=== PATIENT | male | born 1945 | race Caucasian/White ===

== ENCOUNTER → 2022-03-16 14:21 | Outpatient (CLI) | payer MEDICARE, OTHER, SELFPAY ==
[2022-03-16 15:39] LABS: Hematocrit 44.6 % (41-53); Hemoglobin 15.4 g/dL (13.5-17.5); Mean Corpuscular HGB Conc 34.5 % (30-36); Mean Corpuscular Hemoglobin 32.1 PG (26-34); Mean Corpuscular Volume 93.1 fL (80-100); Platelet Count 207 X10^3/uL (150-400); Red Blood Cell Count 4.79 X10^6/uL (4.5-5.9); Red Cell Distribution Width 12.9 % (11.6-14.8); White Blood Cell Count 7.2 X10^3/uL (4.5-11.0)
[2022-03-16 16:39] LABS: Alanine Aminotransferase 28 IU/L (<50); Albumin 4.6 g/dL (3.5-5.0); Albumin Globulin Ratio 1.4 (1.0-2.8); Alkaline Phosphatase 49 U/L (38-126); Aspartate Aminotransferase 31 IU/L (17-59); BUN Creatinine Ratio 20.4 (6-22); Bilirubin Total 0.4 mg/dL (0.2-1.3); Blood Urea Nitrogen 21 mg/dL (9-20); Calcium 9.7 mg/dL (8.4-10.2); Carbon Dioxide 23 mmol/L (22-32); Chloride 107 mmol/L (98-107); Cholesterol 225 mg/dL (140-199); Estimated Glomerular Filt Rate > 60 mL/min (>60); Globulin 3.3 g/dL (1.7-4.1); Glucose 96 mg/dL (80-110); HDL Cholesterol 50 mg/dL (40-60); HEMOLYSIS < 15 (0-50); LDL Cholesterol Calculated 125 mg/dL (<100); Potassium 4.5 mmol/L (3.4-5.1); Sodium 138 mmol/L (137-145); Total Protein 7.9 g/dL (6.3-8.2); Triglycerides 252 mg/dL (35-150)
[2022-03-16 17:10] LABS: Prostate Specific Antigen 0.642 ng/mL (0.10-4.00)
== END ==
PROVIDERS: PCP Internal Medicine; Referring Provider Internal Medicine; Visit Provider Internal Medicine
DX: I10 Essential (primary) hypertension (principal); N40.1 Benign prostatic hyperplasia with lower urinary tract symptoms; E78.2 Mixed hyperlipidemia; N13.8 Other obstructive and reflux uropathy
CPT/HCPCS: 36415; 80053; 80061; 84153; 84443; 85027

== ENCOUNTER → 2022-08-23 11:54 | Outpatient (CLI) | payer MEDICARE, OTHER, SELFPAY ==
[2022-08-23 12:57] LABS: Cholesterol 174 mg/dL (140-199); HDL Cholesterol 68 mg/dL (40-60); LDL Cholesterol Calculated 76 mg/dL (<100); Triglycerides 149 mg/dL (35-150)
== END ==
PROVIDERS: PCP Internal Medicine; Referring Provider Internal Medicine; Visit Provider Internal Medicine
DX: E78.2 Mixed hyperlipidemia (principal)
CPT/HCPCS: 36415; 80061

== ENCOUNTER → 2023-02-18 09:18 | Outpatient (CLI) | payer MEDICARE, OTHER, SELFPAY ==
[2023-02-19 13:26] LABS: Fecal Immunochemical Test Negative (Negative)
== END ==
PROVIDERS: PCP Internal Medicine; Referring Provider Internal Medicine; Visit Provider Internal Medicine
DX: Z12.11 Encounter for screening for malignant neoplasm of colon (principal)
CPT/HCPCS: 82274

== ENCOUNTER 2023-03-19 15:57 | Emergency (ER) | payer MEDICARE, OTHER, SELFPAY ==
[2023-03-19] VITALS (41 sets, daily range): BP systolic 129–241; BP diastolic 74–124; PULSE 60–84; RESP 13–24; TEMP 36.6; O2SAT 94–97; BMI 25.8
--- NOTE | 2023-03-19 | DI.RAD.S_ITS ---
PROCEDURE: XR SHOULDER RT MIN 2V INDICATIONS: POST REDUCTION TECHNIQUE: 3 views of the shoulder were acquired. COMPARISON: [facility], CR, XR SHOULDER RT MIN 2V, 03/19/2023, 16:09. FINDINGS: Bones: There is interval reduction of earlier noted anterior dislocation at glenohumeral joint. There is suggestion of a Hill-Sachs deformity involving posterior lateral humeral head. No gross Bankart fracture. Moderate acromioclavicular joint and glenohumeral joint osteoarthritic changes are seen. No suspicious bony lesions. Visualized ribs appear intact. Soft tissues: No suspicious soft tissue calcifications. IMPRESSION: Interval reduction of earlier noted glenohumeral joint dislocation with suggestion of a Hill-Sachs deformity involving humeral head. Shoulder alignment is anatomic. No other fracture or dislocation. Moderate shoulder joint osteoarthritis. Dictated by: Bernard Minor M.D. on 03/19/2023 at 18:30 Approved by: Bernard Minor M.D. on 03/19/2023 at 18:31
--- NOTE | 2023-03-19 16:08 | DI.RAD.S_ITS ---
PROCEDURE: XR SHOULDER RT MIN 2V INDICATIONS: fall with deformity TECHNIQUE: 2 views of the shoulder were acquired. COMPARISON: None. FINDINGS: Bones: Anterior dislocation of the right humerus. No fractures. No suspicious bony lesions. Visualized ribs appear intact. Soft tissues: No suspicious soft tissue calcifications. IMPRESSION: Right shoulder anterior dislocation. Dictated by: Winnie Haines MD, PhD on 03/19/2023 at 16:38 Approved by: Winnie Haines MD, PhD on 03/19/2023 at 16:38
[2023-03-19] MEDS: MORPHINE 2 MG/ML INJ IV (16:51)
[2023-03-19] MEDS: SODIUM CHLORIDE 0.9% 1,000 ML 1000 ML IV (17:35)
[2023-03-19] MEDS: propofoL 200 MG/20 ML VIAL 50 MG IV (17:50)
--- NOTE | 2023-03-19 17:51 | ED.UPPEXIN ---
HPI - Extremity Injury (Upper) General Chief Complaint: Extremity Injury, Upper Stated Complaint: fall Time Seen by Provider: 03/19/23 16:37 Source: patient and EMS Mode of arrival: EMS History of Present Illness HPI narrative: Patient is a 77-year-old male history of aortic stenosis, hypertension, hyperlipidemia who presents after a ground level fall with right shoulder pain. He reports that he and his are [place] when he tripped and fell. He did not hit her head or lose consciousness. He has no other injury. He is obvious right shoulder deformity. Not on any antiplatelet or anticoagulation medication. Related Data Home Medications Medication Instructions Recorded Confirmed aspirin 81 mg tablet,delayed 81 mg PO DAILY 03/16/22 02/13/23 release cholecalciferol (vitamin D3) 125 125 mcg PO DAILY 03/16/22 02/13/23 mcg (5,000 unit) capsule ferrous sulfate 325 mg (65 mg 325 mg PO Q OTHER DAY 03/16/22 02/13/23 iron) tablet (Feosol) glucosamine HCl 3,000 mg PO DAILY 03/16/22 02/13/23 multivitamin 1 tab PO DAILY 03/16/22 02/13/23 omega-3 fatty acids 1,000 mg 1,000 mg PO BID 03/16/22 02/13/23 capsule Previous Rx's Medication Instructions Recorded finasteride 5 mg tablet 5 mg PO DAILY #90 tabs 03/16/22 lisinopril 10 mg tablet 10 mg PO DAILY #90 tabs 03/16/22 tamsulosin 0.4 mg capsule 0.8 mg PO DAILY #180 caps 03/16/22 tadalafil (pulm. hypertension) 20 20 mg PO DAILY PRN sexual activity 08/23/22 mg tablet (pulmonary hypertension) #20 tabs rosuvastatin 10 mg tablet 10 mg PO DAILY #90 tabs 03/14/23 hydrocodone 5 mg-acetaminophen 325 1 tab PO Q6H PRN pain #10 tabs 03/19/23 mg tablet Allergies Allergy/AdvReac Type Severity Reaction Status Date / Time No Known Drug Allergies Allergy Verified 03/19/23 16:08 Review of Systems Review of Systems ROS Unobtainable: All systems reviewed & are unremarkable except as noted in HPI and below Patient History Medical History Aortic stenosis BPH w urinary obs/LUTS Cataracts, bilateral Chicken pox Erectile dysfunction Essential hypertension History of colonic polyps Measles Mixed hyperlipidemia Overweight Wears glasses Surgical History Anesthesia History of tonsillectomy (~1948) Family History Mother History of heart disease Grandmother History of heart disease Hypertension Grandfather Stroke Grandmother Diabetes mellitus Social History Smoking Status: Never smoker Smoking Status: Never smoker alcohol intake frequency: 0-2 drinks per day Substance Use Type: does not use Exam Initial Vital Signs Initial Vital Signs: Vital Signs Temperature 97.9 F 03/19/23 16:05 Pulse Rate 60 03/19/23 16:05 Respiratory Rate 20 03/19/23 16:05 Blood Pressure 129/100 H 03/19/23 16:05 Pulse Oximetry 96 03/19/23 16:05 Oxygen Delivery Method Room Air 03/19/23 16:05 GENERAL: pleasant 77-year-old male HEENT: Head atraumatic,EOMI, pupils reactive, face symmetric, moist mucous membranes CARDIOVASCULAR: Regular rate and rhythm without murmurs, rubs or gallops. RESPIRATORY: Breath sounds equal bilaterally, no wheezes rales or rhonchi. ABDOMEN: Soft, nontender. Normoactive bowel sounds all 4 quadrants. No guarding or rebound. EXTREMITIES: Normal range of motion, no clubbing or edema. Neurovascularly intact Right shoulder anterior dislocation no clavicle step-off sensation over deltoid intact distal radial pulse intact other deformity NEUROLOGICAL: Alert and oriented x4. SKIN: Warm, dry, no laceration, no petechiae, no rashes or lesions. Procedures Orthopedic Joint Reduction Joint #1: Side: right Joint Reduction Location: shoulder Analgesia: procedural sedation Shoulder Technique Used (if applicable): traction/counter-traction Post-reduction neuro exam: intact and no change Post-reduction vascular: intact Post Reduction X-Ray Obtained: Yes Post Reduction X-Ray Results: reduced Splint Applied: Yes Procedural Sedation Consent signed: Yes Time out performed: Yes Indication: fracture/dislocation reduction ASA Class: II Mallampati Airway Classification: Class II Preparation: monitor tech applied, pulse oximeter, capnometry used, supplemental O2 applied and suction/airway equipment at bedside IV Propofol dose (mg): 50 Intraservice time/total sedation time (min): 11 ED Sedation Level: Moderate (Concious) Patient Tolerated Procedure: Well and No complications Complications: none Course Orders Ordered: ED Orders 03/19/23 16:08 XR shoulder RT min 2V Stat Discontinued Medications Hydrocodone Bitart/Acetaminophen (Hydrocodone/Acet 5/325 Prepack) 1 bottle MISC SEEINSTR ONE Stop: 03/19/23 18:47 Last Admin: 03/19/23 18:57 Dose: 1 bottle Documented By: FIONA Sodium Chloride (Normal Saline 0.9%) 1,000 mls @ 1,000 mls/hr IV BOLUS ONE Stop: 03/19/23 18:15 Last Infusion: 03/19/23 18:58 Dose: 0 mls/hr Documented By: Admin: 03/19/23 17:35 Dose: 1,000 mls/hr Documented By: FIONA Morphine Sulfate (Morphine 2 Mg/Ml Inj) 2 mg IV NOW ONE Stop: 03/19/23 16:38 Last Admin: 03/19/23 16:51 Dose: 2 mg Documented By: NADIRA Propofol (Propofol 200 Mg/20 Ml Vial) 50 mg IV NOW ONE Stop: 03/19/23 17:17 Last Admin: 03/19/23 17:50 Dose: 50 mg Documented By: FIONA Vital Signs Vital signs: Vital Signs - 8 hr 03/19/23 16:05 03/19/23 16:12 03/19/23 16:13 Temperature 97.9 F Pulse Rate 60 65 Respiratory Rate 20 Blood Pressure 129/100 H 212/97 H Pulse Oximetry 96 97 Oxygen Delivery Method Room Air 03/19/23 16:13 03/19/23 16:30 03/19/23 16:43 Temperature Pulse Rate 63 60 Respiratory Rate Blood Pressure 211/100 H Pulse Oximetry 96 95 Oxygen Delivery Method 03/19/23 16:43 03/19/23 16:53 03/19/23 16:53 Temperature Pulse Rate 62 61 Respiratory Rate Blood Pressure 190/92 H Pulse Oximetry 94 94 Oxygen Delivery Method 03/19/23 17:00 03/19/23 17:58 03/19/23 18:02 Temperature Pulse Rate 60 68 68 Respiratory Rate 18 18 Blood Pressure 184/92 H 176/87 H Pulse Oximetry 94 97 97 Oxygen Delivery Method 03/19/23 18:07 03/19/23 18:12 03/19/23 18:17 Temperature Pulse Rate 66 71 64 Respiratory Rate 18 18 18 Blood Pressure 185/91 H 180/74 H 174/84 H Pulse Oximetry 96 97 97 Oxygen Delivery Method 03/19/23 17:05 03/19/23 17:10 03/19/23 17:15 Temperature Pulse Rate 62 62 61 Respiratory Rate Blood Pressure Pulse Oximetry 95 95 95 Oxygen Delivery Method 03/19/23 17:20 03/19/23 17:25 03/19/23 17:30 Temperature Pulse Rate 65 65 65 Respiratory Rate Blood Pressure Pulse Oximetry 95 96 96 Oxygen Delivery Method 03/19/23 17:35 03/19/23 17:40 03/19/23 17:44 Temperature Pulse Rate 70 71 Respiratory Rate Blood Pressure 213/95 H Pulse Oximetry 96 95 Oxygen Delivery Method 03/19/23 17:44 03/19/23 17:45 03/19/23 17:46 Temperature Pulse Rate 72 71 Respiratory Rate 15 17 Blood Pressure 205/123 H Pulse Oximetry 96 97 Oxygen Delivery Method 03/19/23 17:46 03/19/23 17:50 03/19/23 17:51 Temperature Pulse Rate 70 73 73 Respiratory Rate 23 13 14 Blood Pressure Pulse Oximetry 97 95 97 Oxygen Delivery Method 03/19/23 17:51 03/19/23 17:55 03/19/23 17:59 Temperature Pulse Rate 84 Respiratory Rate 22 Blood Pressure 241/101 H 184/92 H Pulse Oximetry 96 Oxygen Delivery Method 03/19/23 17:59 03/19/23 18:00 03/19/23 18:00 Temperature Pulse Rate 70 70 Respiratory Rate 18 16 Blood Pressure 176/87 H Pulse Oximetry 96 95 Oxygen Delivery Method 03/19/23 18:05 03/19/23 18:05 03/19/23 18:10 Temperature Pulse Rate 68 Respiratory Rate 24 Blood Pressure 185/91 H 162/78 H Pulse Oximetry 94 Oxygen Delivery Method 03/19/23 18:10 03/19/23 18:15 03/19/23 18:15 Temperature Pulse Rate 64 61 Respiratory Rate 13 15 Blood Pressure 174/84 H Pulse Oximetry 96 95 Oxygen Delivery Method 03/19/23 18:20 03/19/23 18:20 03/19/23 18:25 Temperature Pulse Rate 62 Respiratory Rate 13 Blood Pressure 174/84 H 175/124 H Pulse Oximetry 96 Oxygen Delivery Method 03/19/23 18:25 03/19/23 18:33 03/19/23 18:30 Temperature Pulse Rate 62 60 62 Respiratory Rate 22 16 22 Blood Pressure Pulse Oximetry 97 96 Oxygen Delivery Method 03/19/23 18:31 03/19/23 18:31 03/19/23 18:35 Temperature Pulse Rate 65 Respiratory Rate 22 Blood Pressure 182/118 H 178/78 H Pulse Oximetry 96 Oxygen Delivery Method 03/19/23 18:35 03/19/23 18:40 03/19/23 18:41 Temperature Pulse Rate 64 65 67 Respiratory Rate 21 22 18 Blood Pressure Pulse Oximetry 96 94 95 Oxygen Delivery Method 03/19/23 18:41 03/19/23 18:45 03/19/23 18:46 Temperature Pulse Rate 66 Respiratory Rate 20 Blood Pressure 203/85 H 170/77 H Pulse Oximetry 97 Oxygen Delivery Method MDM - Extremity Injury (Upper) Imaging Data Extremity x-ray #1: Radiologist's Impression: PROCEDURE:? XR SHOULDER RT MIN 2V ? INDICATIONS:? fall with deformity ? TECHNIQUE:? 2 views of the shoulder were acquired.? ? COMPARISON:? None. ? FINDINGS:? ? Bones:? Anterior dislocation of the right humerus.? No fractures.? No suspicious bony lesions.? Visualized ribs appear intact.? ? Soft tissues:? No suspicious soft tissue calcifications.? ? IMPRESSION:? Right shoulder anterior dislocation. ? ? Dictated by: Winnie Haines MD, PhD on 03/19/2023 at 16:38? Extremity x-ray #2: Radiologist's Impression: PROCEDURE:? XR SHOULDER RT MIN 2V ? INDICATIONS:? POST REDUCTION ? TECHNIQUE:? 3 views of the shoulder were acquired.? ? COMPARISON:? [facility], , XR SHOULDER RT MIN 2V, 03/19/2023, 16:09. ? FINDINGS:? ? Bones:? There is interval reduction of earlier noted anterior dislocation at glenohumeral joint.? There is suggestion of a Hill-Sachs deformity involving posterior lateral humeral head.? No gross Bankart fracture.? Moderate acromioclavicular joint and glenohumeral joint osteoarthritic changes are seen.? No suspicious bony lesions.? Visualized ribs appear intact.? ? Soft tissues:? No suspicious soft tissue calcifications.? ? IMPRESSION:? Interval reduction of earlier noted glenohumeral joint dislocation with suggestion of a Hill-Sachs deformity involving humeral head.? Shoulder alignment is anatomic.? No other fracture or dislocation.? Moderate shoulder joint osteoarthritis. ? ? Dictated by: Bernard Minor M.D. on 03/19/2023 at 18:30 ? ? Approved by: Bernard Minor M.D. on 03/19/2023 at 18:31 ? MDM Narrative Medical decision making narrative: Patient is 77-year-old male had a mechanical trip and fall with right anterior shoulder dislocation. Easily reduced. Patient given pain medication as needed and instructed to follow-up. No other injury no other need for workup or evaluation. Discharge Plan Departure Patient Disposition: Home Clinical Impression: Anterior dislocation of right shoulder Instructions: DI for Shoulder Dislocation Activity Restrictions/Additional Instructions: *You have been diagnosed with right shoulder dislocation *What to do: I am sorry you dislocated her shoulder, expect it to be sore for the next couple of days. Wear sling as needed but make sure that you move your shoulder regularly. Increase activity as tolerated *Continue to take medications as directed [place] 1 tablet every 6 hours if needed for severe pain--> sent to [facility] Motrin 600 mg every 6 hours if needed for [id number] pain *Follow up with your primary care provider in 2-3 days or call [phone] *Return to ER if you should have increasing pain numbness tingling weakness or any new, worsening or concerning symptoms CONTROLLED SUBSTANCE DISCHARGE (Narcotoic/benzodiazepine/Flexeril/Phenergan) 1. You have been prescribed narcotic medications, it does have acetaminophen/Tylenol/paracetamol in it, DO NOT TAKE MORE THAN 4,00mg in 24 hours of Tylenol. TRAMADOL DOES NOT CONTAIN TYLENOL 2. Please understand that we cannot provide further refills of narcotics, benzodiazepines or controlled substances through the ED and her pain management will need to be through your provider. 3. While on these medications you cannot drive or operate heavy machinery. 4. You cannot sign legal documents or perform any duties such as this. 5. As long as you're taking opiate pain medications he should also be taking a stool softener such as Colace, Dulcolax, MiraLAX or prune juice, to help avoid constipation. Prescriptions: New hydrocodone-acetaminophen 5-325 mg tablet 1 tab PO Q6H PRN (Reason: pain) Qty: 10 0RF No Action rosuvastatin 10 mg tablet 10 mg PO DAILY Qty: 90 3RF tadalafil (pulm. hypertension) 20 mg tablet 20 mg PO DAILY PRN (Reason: sexual activity) Qty: 20 5RF Rx Instructions: administer approximately 30min before sexual activity; do not use more than 1 dose per 24hrs aspirin 81 mg tablet,delayed release (DR/EC) 81 mg PO DAILY omega-3 fatty acids 1,000 mg capsule 1,000 mg PO BID glucosamine HCl 3,000 mg PO DAILY multivitamin Tablet 1 tab PO DAILY cholecalciferol (vitamin D3) 125 mcg (5,000 unit) capsule 125 mcg PO DAILY ferrous sulfate [Feosol] 325 mg (65 mg iron) tablet 325 mg PO Q OTHER DAY tamsulosin 0.4 mg capsule 0.8 mg PO DAILY Qty: 180 3RF lisinopril 10 mg tablet 10 mg PO DAILY Qty: 90 3RF finasteride 5 mg tablet 5 mg PO DAILY Qty: 90 3RF Referrals: Yash Zafar MD [Primary Care Provider] - Stand Alone Forms: Patient Portal/API
--- NOTE | 2023-03-19 18:28 | PC.NURSE ---
Sedation notes for post-procedure were charted in intra procedure, FYI. Pt tolerated procedure well. Start time and end time were 60 seconds apart. Pt AOx4 immediately after procedure. Physician administered 50mg propofol.
[2023-03-19] MEDS: HYDROCODONE/ACET 5/325 PREPACK 1 BOTTLE MISC (18:57)
== END 2023-03-19 18:59 | disposition home or self-care (01) ==
PROVIDERS: Emergency Provider Emergency Medicine; PCP Internal Medicine
DX: S43.004A Unspecified dislocation of right shoulder joint, initial encounter (principal); W18.30XA Fall on same level, unspecified, initial encounter
CPT/HCPCS: 23650; 36415; 73030; 96361; 96374; 99152; 99284; J2270; J2704

== ENCOUNTER → 2023-04-02 12:22 | Outpatient (CLI) | payer MEDICARE, OTHER, SELFPAY ==
--- NOTE | 2023-04-02 12:24 | DI.ECHO.S_ITS ---
Version: 1 Study ID: [id number] [place] [id number] Name: RADHA GONZALEZ Study Date: 04/02/2023, 12: 39 PM : 1945 BP: 147 / 89 mmHg Gender: Male Height: 70 in Age: 77 Years Weight: 184 lb BSA: 2.01 mA? Ordering: AGATHA DEVRIES Referring: AGATHA DEVRIES Clinician: Neisha Field Reason For Study: AORTIC STENOSIS History: Summary Statements Sinus rhythm with heart rate 54-71 bpm during the exam. Normal LV size and mildly increased wall thickness; normal wall motion and LV systolic function. EF is 55-60%. Stage I diastolic dysfunction. Normal chamber sizes. Mild MAC. Aortic valve demonstrates moderately thickened and calcified leaflets with moderately reduced leaflet excursion. There is mild-moderate aortic stenosis. Mean gradient is 16 mm Hg, peak velocity is 2.6 m/sec and calculated valve area is 1.3 cm squared. Can not exclude a bicuspid valve with pseudoraphe connectingright and left coronary leaflets. No prior study available for comparison. Procedure: A two-dimensional transthoracic echocardiogram with color flow and Doppler was performed. The study quality was technically adequate. There is no prior echocardiogram noted for this patient. The patient was in sinus rhythm with heart rates between 54-71 bpm during the exam. Left Ventricle: The ejection fraction is estimated to be 55-60%. The left ventricle is normal in size. There is mild concentric left ventricular hypertrophy. Right Ventricle: The right ventricle is normal in size and function. Atria: There is no Doppler evidence for an interatrial shunt. The left atrial size is normal. Right atrial size is normal. Mitral Valve: There is trace mitral regurgitation. There is mild mitral annular calcification. The mitral valve leaflets appear borderline thickened, but open well. Aortic Valve: There is mild aortic regurgitation. There is mild to moderate aortic stenosis. The peak aortic velocity is 2.6 m/sec. The aortic valve mean gradient is 16 mmHg. The calculated aortic valve area is 1.3 cm2. The aortic valve is moderately calcified. There is mild to moderately reduced leaflet mobility. Tricuspid Valve: There is trace tricuspid regurgitation. The tricuspid valve is normal in structure and function. Pulmonic Valve: There is no pulmonic valvular regurgitation. The pulmonic valve leaflets are thin and pliable; valve motion is normal. Great Vessels: The dimensions of the ascending aorta are normal. The aortic root is normal size. The IVC is of normal diameter and collapses greater than 50% with a sniff. This suggests a low right atrial pressure of 3 mm Hg. Pericardium/ Pleura: There is no pericardial effusion. There is no pleural effusion. 2D and M-Mode Measurements and Calculations LVIDd: 4.5 cm AoV Openin.81 cm LVIDs: 2.8 cm LVOT diam: 2.12 cm IVSd: 1.09 cm Ao root diam: 3.4 cm LVPWd: 1.07 cm asc Aorta Diam: 3.5 cm LV foote. diameter/BSA (cm/m^2): 2.21 Ao Arch Diam (Prox Trans): 2.30 cm LV sys. 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 IVC diam: 1.79 cm LA A2 area: 16.4 fire truck driver? RA area: 16.3 fire truck driver? LA length (vol): 4.7 cm RA long axis: 4.9 cm LA vol: 41.7 ml RA vol: 46.2 ml LA vol index: 20.7 ml/mA? RA : 22.9 ml/mA? Doppler Measurements and Calculations Ao V2 max: 261.7 cm/sec LVOT Max Fer: 94.0 cm/sec Ao V2 mean: 180.5 cm/sec LV V1 max P.5 mmHg Ao V2 VTI: 59.3 cm LV V1 VTI: 22.0 cm Ao max P.3 mmHg SV(LVOT): 77.5 ml Ao mean P.2 mmHg TALHA(I,D): 1.31 fire truck driver? TALHA(V,D): 1.27 fire truck driver? TALHA indexed to BSA (cm^2/m^2): 0.65 sev ratio: 0.37 MV E max fer: 62.9 cm/sec MV dec time: 0.32 sec MV A max fer: 102.5 cm/sec MV E/A: 0.61 Med Peak E' Fer: 3.7 cm/sec Lat Peak E' Fer: 6.7 cm/sec E/e' average: 13.2 TR max fer: 191.8 cm/sec PA mean P.55 mmHg TR max P.7 mmHg PA V2 max: 88.9 cm/sec Kira Paul M.D. Electronically signed by: Kira Paul M.D. 04/03/2023, 2: 35 AM
== END ==
PROVIDERS: PCP Internal Medicine; Referring Provider Internal Medicine; Visit Provider Internal Medicine
DX: I35.2 Nonrheumatic aortic (valve) stenosis with insufficiency (principal); I34.81 Nonrheumatic mitral (valve) annulus calcification
CPT/HCPCS: 93306

== ENCOUNTER → 2023-08-19 08:43 | Outpatient (CLI) | payer MEDICARE, OTHER, SELFPAY ==
[2023-08-19 09:58] LABS: Aspartate Aminotransferase 27 IU/L (17-59); BUN Creatinine Ratio 18.7 (6-22); Blood Urea Nitrogen 17 mg/dL (9-20); Calcium 10.1 mg/dL (8.4-10.2); Carbon Dioxide 24 mmol/L (22-32); Chloride 105 mmol/L (98-107); Cholesterol 156 mg/dL (140-199); Estimated Glomerular Filt Rate > 60 mL/min (>60); Glucose 102 mg/dL (80-110); HDL Cholesterol 60 mg/dL (40-60); HEMOLYSIS < 15 (0-50); LDL Cholesterol Calculated 68 mg/dL (<100); Potassium 4.4 mmol/L (3.4-5.1); Sodium 137 mmol/L (137-145); Triglycerides 140 mg/dL (35-150)
[2023-08-19 10:26] LABS: Prostate Specific Antigen 0.467 ng/mL (0.10-4.00)
== END ==
PROVIDERS: PCP Internal Medicine; Referring Provider Internal Medicine; Visit Provider Internal Medicine
DX: E78.2 Mixed hyperlipidemia (principal); N40.1 Benign prostatic hyperplasia with lower urinary tract symptoms; N13.8 Other obstructive and reflux uropathy; I10 Essential (primary) hypertension
CPT/HCPCS: 36415; 80048; 80061; 84153; 84450

== ENCOUNTER → 2024-02-25 10:30 | Outpatient (CLI) | payer MEDICARE, OTHER, SELFPAY ==
[2024-02-26 10:10] LABS: Fecal Immunochemical Test Negative (Negative)
== END ==
PROVIDERS: PCP Internal Medicine; Referring Provider Internal Medicine; Visit Provider Internal Medicine
DX: Z86.010 Personal history of colon polyps (principal)
CPT/HCPCS: 82274

== ENCOUNTER → 2024-09-15 09:04 | Outpatient (CLI) | payer MEDICARE, OTHER, SELFPAY ==
[2024-09-15 11:23] LABS: Aspartate Aminotransferase 33 IU/L (17-59); BUN Creatinine Ratio 17.9 (6-22); Blood Urea Nitrogen 21 mg/dL (9-20); Carbon Dioxide 22 mmol/L (22-32); Chloride 106 mmol/L (98-107); Cholesterol 179 mg/dL (140-199); Estimated Glomerular Filt Rate > 60 mL/min (>60); Glucose 103 mg/dL (80-110); HDL Cholesterol 72 mg/dL (40-60); HEMOLYSIS < 15 (0-50); LDL Cholesterol Calculated 84 mg/dL (<100); Potassium 4.7 mmol/L (3.4-5.1); Sodium 137 mmol/L (137-145); Triglycerides 114 mg/dL (35-150)
[2024-09-15 11:58] LABS: Prostate Specific Antigen 0.356 ng/mL (0.10-4.00)
== END ==
PROVIDERS: PCP Internal Medicine; Referring Provider Internal Medicine; Visit Provider Internal Medicine
DX: I10 Essential (primary) hypertension (principal); N40.1 Benign prostatic hyperplasia with lower urinary tract symptoms; E78.2 Mixed hyperlipidemia; N13.8 Other obstructive and reflux uropathy
CPT/HCPCS: 36415; 80048; 80061; 84153; 84450

== ENCOUNTER → 2025-09-20 09:46 | Outpatient (CLI) | payer MEDICARE, SELFPAY ==
[2025-09-20 11:28] LABS: Hematocrit 43.3 % (41-53); Hemoglobin 14.9 g/dL (13.5-17.5); Mean Corpuscular HGB Conc 34.5 % (30-36); Mean Corpuscular Hemoglobin 32.5 PG (26-34); Mean Corpuscular Volume 94.4 fL (80-100); Platelet Count 207 X10^3/uL (150-400)
[2025-09-20 11:53] LABS: Blood Urea Nitrogen 16 mg/dL (9-20); Calcium 10.0 mg/dL (8.4-10.2); Carbon Dioxide 22 mmol/L (22-32); Chloride 106 mmol/L (98-107); Cholesterol 150 mg/dL (140-199); Estimated Glomerular Filt Rate > 60 mL/min (>60); Glucose 104 mg/dL (70-99); HDL Cholesterol 70 mg/dL (40-60); HEMOLYSIS < 15 (0-50); Potassium 4.5 mmol/L (3.4-5.1); Sodium 138 mmol/L (137-145); Triglycerides 113 mg/dL (35-150)
[2025-09-20 12:23] LABS: Prostate Specific Antigen 0.421 ng/mL (0.10-4.00)
[2025-09-20 12:29] LABS: TSH w/ Reflex to FT4 2.39 uIU/mL (0.47-4.68)
== END ==
PROVIDERS: PCP Internal Medicine; Referring Provider Internal Medicine; Visit Provider Internal Medicine
DX: N40.1 Benign prostatic hyperplasia with lower urinary tract symptoms (principal); N13.8 Other obstructive and reflux uropathy; I10 Essential (primary) hypertension; E78.2 Mixed hyperlipidemia; R79.89 Other specified abnormal findings of blood chemistry
CPT/HCPCS: 36415; 80048; 80061; 84153; 84403; 84443; 84450; 85027